=== PATIENT | female | born 1980 | race Caucasian/White ===

== ENCOUNTER 2017-05-12 04:38 | Inpatient (IN) | payer OTHER ==
[2017-05-12] VITALS (30 sets, daily range): BP systolic 91–141; BP diastolic 50–82
[~2017-05-12] VITALS: Ht 175.9 cm; Wt 73.0 kg
[~2017-05-12 04:38] MED LIST: BENTYL10 MG PO; CIPRO500 MG PO; PHENERGAN25 MG PR; PROMETHAZINE HC25 M1 PO; PROVENTIL HFA6.7 GM IH
[2017-05-12] MEDS ORDERED: PRENATAL TABLE1 EAC3 PO (05:16)
[2017-05-12 10:41] LABS: EOSINOPHIL (%) 0.4 % (0-5); EOSINOPHIL COUNT 0.1 K/uL (0-0.3); HEMATOCRIT 37.7 % (36.0-46.0); IMMATURE GRANULOCYTE (%) 0.9 % (0.0-0.7); IMMATURE GRANULOCYTE COUNT 0.2 K/uL; INSTRUMENT ABS NEUTROPHIL CT 13.5 K/uL; LYMPHOCYTE COUNT 3.1 K/uL (1.0-2.8); MCH 33.6 PG (29.0-34.0); MCHC 35.3 G/DL (30.0-36.0); MCV 95.2 FL (83-99); MEAN PLAT.VOLUME 9.8 uM^3 (9.5-12.4); MONOCYTE COUNT 1.1 K/uL (0-0.8); NEUTROPHIL (%) 75.2 % (45-76); NEUTROPHIL COUNT 13.5 K/uL (1.8-6.4); PLATELET COUNT 298 K/uL (156-360); RBC DIS.WIDTH-CV 13.5 % (11.8-14.6); RBC DIS.WIDTH-SD 47.3 % (39-53); RED BLOOD COUNT 3.96 M/uL (3.80-5.20)
[2017-05-12] MEDS ORDERED: IBUPROFEN800 MG PO (21:45)
[2017-05-13 07:37] VITALS: BP 112/59
[2017-05-13 15:01] VITALS: BP 111/58
[2017-05-13 23:10] VITALS: BP 103/57
[2017-05-14 07:32] VITALS: BP 110/50
== END 2017-05-14 11:40 | disposition home or self-care (01) | DRG 775 ==
LOC: LDRP-OP 04:38 → 2WEST 04:39 → LDRP-OP 06-09 15:50
PROVIDERS: Obstetrics & Gynecology
PROC: 10907ZC Drainage of Amniotic Fluid, Therapeutic from Products of Conception, Via Natural or Artificial Opening (ICD-10-PCS; principal; 2017-05-12)
PROC: 10E0XZZ Delivery of Products of Conception, External Approach (ICD-10-PCS; principal; 2017-05-12)
PROC: 3E0S3CZ (ICD-10-PCS; principal; 2017-05-12)
PROC: 0UQGXZZ Repair Vagina, External Approach (ICD-10-PCS; principal; 2017-05-12)
PROC: 00HU33Z Insertion of Infusion Device into Spinal Canal, Percutaneous Approach (ICD-10-PCS; principal; 2017-05-12)
DX: O71.4 Obstetric high vaginal laceration alone (principal); Z37.0 Single live birth; Z3A.40 40 weeks gestation of pregnancy; O99.824 Streptococcus B carrier state complicating childbirth; O77.0 Labor and delivery complicated by meconium in amniotic fluid; O09.523 Supervision of elderly multigravida, third trimester; O99.52 Diseases of the respiratory system complicating childbirth; J45.909 Unspecified asthma, uncomplicated; M48.02 Spinal stenosis, cervical region; O99.334 Smoking (tobacco) complicating childbirth; F17.200 Nicotine dependence, unspecified, uncomplicated
CPT/HCPCS: 85025; 86900; 86901; C1755; J0595; J2540; J3010; J7120